=== PATIENT | male | born 1985 | race African-American/Black ===

== ENCOUNTER 2021-08-20 03:00 | Emergency (ER) | payer MEDICAID ==
[~2021-08-20] VITALS: Ht 177.8 cm; Wt 92.5 kg
[2021-08-20 03:07] VITALS: BP 141/102
--- NOTE | 2021-08-20 03:13 | NUR ---
Patient ambulated to bed 5.
[2021-08-20] MEDS ORDERED: IBUPROFEN 800 MG TAB PO ONE (03:15)
[2021-08-20] MEDS ORDERED: PANTOPRAZOLE 40 MG TABEC PO ONE (03:15)
[2021-08-20] MEDS ORDERED: ASPIRIN 325 MG TAB PO ONE (03:15)
--- NOTE | 2021-08-20 03:15 | NUR ---
IN BED 5 WITH C/O HEMATEMESIS. ADMITS TO CONSUMING ALCOHOL FREQUENTLY. PT STATES HE HAS BEEN HAVING CHEST PRESSURE ON AND OFF FOR 1 WEEK
--- NOTE | 2021-08-20 03:18 | NUR ---
TO RADIOLOGY VIA W/C
--- NOTE | 2021-08-20 03:20 | NUR ---
RETURNED FROM RADIOLOGY. LAB AT BEDSIDE
--- NOTE | 2021-08-20 03:33 | NUR ---
DR FINK AT BEDSIDE FOR EXAM
[2021-08-20] MEDS ORDERED: ONDANSETRON 4 MG/2 ML VIAL IVP ONE (03:35)
[2021-08-20] MEDS ORDERED: PANTOPRAZOLE 40 MG INJ VIAL IVP ONE (03:35)
[2021-08-20 03:43] LABS: BASOPHILS # (AUTO) 0.1 K/uL (0.00-0.22); BASOPHILS % (AUTO) 1.1 % (0.0-2.0); EOSINOPHILS # (AUTO) 0.1 K/uL (0-0.4); EOSINOPHILS % (AUTO) 1.5 % (0.0-4.0); HEMATOCRIT 44.7 % (36-52); HEMOGLOBIN 15.5 g/dL (12.0-18.0); LYMPHOCYTES # (AUTO) 2.5 K/uL (2.0-11.5); LYMPHOCYTES % (AUTO) 40.7 % (20.5-51.1); MEAN CORPUSCULAR HEMOGLOBIN 34 pg (27-31); MEAN CORPUSCULAR HGB CONC 35 g/dL (33-37); MEAN CORPUSCULAR VOLUME 97.2 fL (80-94); MONOCYTES # (AUTO) 0.5 K/uL (0.8-1.0); MONOCYTES % (AUTO) 8.2 % (1.7-9.3); NEUTROPHILS % (AUTO) 48.5 % (42.2-75.2); PLATELET COUNT (AUTO) 184 K/uL (140-450); RED CELL DISTRIBUTION WIDTH 15.4 % (11.6-13.7); WHITE BLOOD COUNT (AUTO) 6.1 K/uL (4.8-10.8)
[2021-08-20 03:59] LABS: ALBUMIN 4.2 g/dL (3.4-5.0); ANION GAP 13.3 (8-16); CARBON DIOXIDE 26.1 mmol/L (21-32); CREATININE 1.2 mg/dL (0.6-1.3); POTASSIUM 3.4 mmol/L (3.5-5.1); TOTAL BILIRUBIN 0.8 mg/dL (0.0-1.0)
[2021-08-20 05:08] LABS: PROTHROMBIN TIME 10.7 secs (10.8-13.4)
[2021-08-20] MEDS ORDERED: ONDA-188 SL (05:57)
[2021-08-20] MEDS ORDERED: PANT40EC PO (05:57)
--- NOTE | 2021-08-20 06:00 | NUR ---
RESTING COMFORTABLY. AWAITING REEVAL AND DISPOSITION
[2021-08-20 06:10] VITALS: BP 138/94
--- NOTE | 2021-08-20 06:10 | NUR ---
Patient discharged with v/s stable. Written and verbal after care instructions given and explained. Patient alert, oriented and verbalized understanding of instructions. Ambulatory with steady gait. All questions addressed prior to discharge. ID band removed. Patient advised to follow up with PMD. Rx of PRILOSEC given. Patient educated on indication of medication including possible reaction and side effects. Opportunity to ask questions provided and answered.
== END 2021-08-20 06:18 | disposition home or self-care (01) ==
LOC: MED 03:00
DX: K92.0 Hematemesis (principal); Z79.899 Other long term (current) drug therapy
CPT/HCPCS: 36415; 71045; 80053; 84484; 85025; 85610; 93005; 96374; 96375; 99285; C9113; G0482; J2405

== ENCOUNTER 2023-07-28 16:59 | Emergency (ER) | payer MEDICAID ==
[~2023-07-28] VITALS: Ht 180.3 cm; Wt 83.9 kg
[~2023-07-28 16:59] MED LIST: ONDA-188 SL; PANT40EC PO
[2023-07-28 17:06] VITALS: BP 125/102; PULSE 117; RESP 19; TEMP 97.9; O2SAT 97
[2023-07-28] MEDS ORDERED: LID5T TP (17:21)
[2023-07-28] MEDS ORDERED: IBUP-2230 PO (17:21)
[2023-07-28] MEDS: KETOROLAC 30 MG/ML VIAL IM ONE (17:29)
== END 2023-07-28 17:32 | disposition home or self-care (01) ==
LOC: MED 16:59
DX: M79.18 Myalgia, other site (principal); Z79.899 Other long term (current) drug therapy
CPT/HCPCS: 96372; 99283; J1885

== ENCOUNTER 2023-07-30 17:20 | Inpatient (IN) | payer MEDICAID ==
[~2023-07-30] VITALS: Ht 180.3 cm; Wt 89.4 kg
[~2023-07-30 17:20] MED LIST changes: +IBUP-2230 PO; +LID5T TP
[2023-07-30 17:40] VITALS: BP 126/73; PULSE 126; RESP 24; TEMP 102.2; O2SAT 99
[2023-07-30] MEDS: KETOROLAC 30 MG/ML VIAL IM ONE (18:35)
[2023-07-30] MEDS: NACL 0.9% 1,000 ML IV ONE (19:05)
[2023-07-30 19:13] LABS: BASOPHILS # (AUTO) 0.1 K/uL (0.00-0.22); BASOPHILS % (AUTO) 0.4 % (0.0-2.0); HEMATOCRIT 36.3 % (36-52); HEMOGLOBIN 12.9 g/dL (12.0-18.0); LYMPHOCYTES # (AUTO) 1.2 K/uL (2.0-11.5); LYMPHOCYTES % (AUTO) 6.7 % (20.5-51.1); MEAN CORPUSCULAR HEMOGLOBIN 33 pg (27-31); MEAN CORPUSCULAR HGB CONC 36 g/dL (33-37); MEAN CORPUSCULAR VOLUME 93.1 fL (80-94); MONOCYTES # (AUTO) 2.8 K/uL (0.8-1.0); MONOCYTES % (AUTO) 15.4 % (1.7-9.3); NEUTROPHILS # (AUTO) 14.3 K/uL (1.8-7.7); NEUTROPHILS % (AUTO) 77.5 % (42.2-75.2); PLATELET COUNT (AUTO) 193 K/uL (140-450); RED CELL DISTRIBUTION WIDTH 15.4 % (11.6-13.7); WHITE BLOOD COUNT (AUTO) 18.4 K/uL (4.8-10.8)
[2023-07-30 19:26] LABS: ANION GAP 15.4 (8-16); CALCIUM 9.3 mg/dL (8.5-10.1); CARBON DIOXIDE 26.6 mmol/L (21-32); CREATININE 1.3 mg/dL (0.6-1.3)
[2023-07-30 19:32] LABS: ALBUMIN 2.9 g/dL (3.4-5.0); BILIRUBIN,DIRECT 0.3 mg/dL (0.0-0.3); TOTAL PROTEIN, SERUM 8.2 g/dL (6.4-8.2)
[2023-07-30 19:37] LABS: LACTIC ACID 1.1 mmol/L (0.4-2.0)
[2023-07-30 20:06] LABS: FLU A ANTIGEN negative (NEGATIVE); FLU B ANTIGEN NEGATIVE (NEGATIVE)
[2023-07-30] MEDS ORDERED: cefTRIAXone 1,000 MG VIAL ONE (20:36)
[2023-07-30] MEDS: POTASSIUM CHLORIDE 10 MEQ TABER PO ONE (20:50)
[2023-07-30] MEDS ORDERED: MORPHINE SULFATE 4 MG/ML SYR IVP PRN (21:05)
[2023-07-30] MEDS ORDERED: cefTRIAXone 1,000 MG in LIDOCAINE MPF 1% 2.1 ML IM ONE (21:05)
[2023-07-30] MEDS ORDERED: ACETAMINOPHEN 325 MG TAB PO PRN (21:05)
[2023-07-30] MEDS: DEXT 5% / NACL 0.45% 1,000 ML IV SCH (22:10)
[2023-07-30 23:30] VITALS: BP 149/98; PULSE 91; PULSE 93; RESP 18; TEMP 98.6; O2SAT 97; O2SAT 98
[2023-07-31 04:00] VITALS: BP 126/70; PULSE 91; RESP 18; TEMP 98.6; O2SAT 97
[2023-07-31 06:43] LABS: BASOPHILS % (AUTO) 0.2 % (0.0-2.0); EOSINOPHILS % (AUTO) 0.2 % (0.0-4.0); HEMOGLOBIN 11.7 g/dL (12.0-18.0); LYMPHOCYTES # (AUTO) 1.4 K/uL (2.0-11.5); MEAN CORPUSCULAR HEMOGLOBIN 33 pg (27-31); MEAN CORPUSCULAR HGB CONC 35 g/dL (33-37); MONOCYTES # (AUTO) 2.2 K/uL (0.8-1.0); MONOCYTES % (AUTO) 17.1 % (1.7-9.3); NEUTROPHILS # (AUTO) 9.2 K/uL (1.8-7.7); NEUTROPHILS % (AUTO) 71.5 % (42.2-75.2); PLATELET COUNT (AUTO) 203 K/uL (140-450); RED BLOOD CELL COUNT(AUTO) 3.51 MIL/uL (4.20-6.10); RED CELL DISTRIBUTION WIDTH 15.1 % (11.6-13.7); WHITE BLOOD COUNT (AUTO) 12.9 K/uL (4.8-10.8)
[2023-07-31 06:57] LABS: ALBUMIN 2.4 g/dL (3.4-5.0); ANION GAP 13.3 (8-16); CALCIUM 8.7 mg/dL (8.5-10.1); CARBON DIOXIDE 26.5 mmol/L (21-32); CREATININE 1.1 mg/dL (0.6-1.3); TOTAL BILIRUBIN 0.7 mg/dL (0.0-1.0); TOTAL PROTEIN, SERUM 7.2 g/dL (6.4-8.2)
[2023-07-31 07:20] LABS: POTASSIUM 2.8 mmol/L (3.5-5.1)
[2023-07-31 08:00] VITALS: BP 128/78; PULSE 90; PULSE 91; RESP 18; TEMP 98.4; O2SAT 97
[2023-07-31] MEDS: ENOXAPARIN 40 MG/0.4 ML SYR SUBQ SCH (09:29)
[2023-07-31 11:02] LABS: APPEARANCE,URINE CLEAR (CLEAR); BILIRUBIN,URINE NEGATIVE (NEGATIVE); BLOOD, URINE 2+ (NEGATIVE); LEUKOCYTE ESTERASE ,URINE NEGATIVE (NEGATIVE); NITRITE, URINE NEGATIVE (NEGATIVE); PROTEIN,URINE 1+ (NEGATIVE); UGLUCOSE NEGATIVE (NEGATIVE); UROBILINOGEN,URINE 0.2 EU/dL (0.2 - 1)
[2023-07-31 11:05] LABS: COLOR,URINE ORANGE (YELLOW)
[2023-07-31 11:13] LABS: BACTERIA,URINE FEW /HPF (None Seen); SQUAMOUS EPITHELIAL CELL,UR 0-3 (FEW) /LPF (0-3 (FEW)); WBC,URINE 0-5 /HPF (0-5)
[2023-07-31 12:00] VITALS: BP 128/78; PULSE 90; RESP 18; TEMP 98.4; O2SAT 97
[2023-07-31] MEDS ORDERED: VANCOMYCIN PER PHARMACY MC PRN (14:40)
[2023-07-31] MEDS: DOXYCYCLINE 100 MG CAP PO SCH (15:04)
[2023-07-31] MEDS: VANCOMYCIN 1,000 MG in DEXTROSE 5% 250 ML IV SCH (15:05)
[2023-07-31] MEDS: MORPHINE SULFATE 2 MG/ML SYR IVP PRN (15:11)
[2023-07-31 16:00] VITALS: BP 113/80; PULSE 100; RESP 19; TEMP 98.6; O2SAT 97
[2023-07-31] MEDS: POTASSIUM CHLORIDE 40 MEQ, LIDOCAINE 1% 25 MG in NACL 0.9% 250 ML IV SCH (18:03)
[2023-07-31 19:44] VITALS: BP 121/73; PULSE 101; RESP 16; TEMP 98.7; O2SAT 100
[2023-07-31 20:00] VITALS: PULSE 101; RESP 16; O2SAT 100
[2023-07-31] MEDS: POTASSIUM CHLORIDE 10 MEQ TABER PO SCH (20:18)
[2023-08-01 04:00] VITALS: BP 146/79; PULSE 99; RESP 16; TEMP 97.7; O2SAT 98
[2023-08-01] MEDS: HYDROcodone/APAP 5/325 MG 1 TAB TAB PO PRN (05:57)
[2023-08-01 07:27] LABS: BASOPHILS # (AUTO) 0.1 K/uL (0.00-0.22); BASOPHILS % (AUTO) 0.5 % (0.0-2.0); EOSINOPHILS % (AUTO) 0.5 % (0.0-4.0); HEMATOCRIT 31.5 % (36-52); HEMOGLOBIN 11.1 g/dL (12.0-18.0); LYMPHOCYTES # (AUTO) 1.7 K/uL (2.0-11.5); LYMPHOCYTES % (AUTO) 17.9 % (20.5-51.1); MEAN CORPUSCULAR HEMOGLOBIN 33 pg (27-31); MEAN CORPUSCULAR HGB CONC 35 g/dL (33-37); MEAN CORPUSCULAR VOLUME 93.6 fL (80-94); MONOCYTES # (AUTO) 1.7 K/uL (0.8-1.0); MONOCYTES % (AUTO) 18.4 % (1.7-9.3); NEUTROPHILS # (AUTO) 5.8 K/uL (1.8-7.7); NEUTROPHILS % (AUTO) 62.7 % (42.2-75.2); PLATELET COUNT (AUTO) 275 K/uL (140-450); RED BLOOD CELL COUNT(AUTO) 3.37 MIL/uL (4.20-6.10); RED CELL DISTRIBUTION WIDTH 14.8 % (11.6-13.7); WHITE BLOOD COUNT (AUTO) 9.2 K/uL (4.8-10.8)
[2023-08-01 08:00] VITALS: PULSE 66; RESP 18; O2SAT 96
[2023-08-01 08:03] LABS: ALBUMIN 2.2 g/dL (3.4-5.0); ANION GAP 12.6 (8-16); CALCIUM 8.8 mg/dL (8.5-10.1); CARBON DIOXIDE 25.4 mmol/L (21-32); CREATININE 1.1 mg/dL (0.6-1.3); TOTAL BILIRUBIN 0.5 mg/dL (0.0-1.0); TOTAL PROTEIN, SERUM 6.9 g/dL (6.4-8.2)
[2023-08-01] MEDS: KETOROLAC 15 MG/ML VIAL IVP PRN (10:24)
[2023-08-01] MEDS: POTASSIUM CHLORIDE 40 MEQ, LIDOCAINE 1% 25 MG in NACL 0.9% 250 ML IV SCH (11:38)
[2023-08-01] MEDS ORDERED: KETOROLAC 15 MG/ML VIAL IVP SCH (12:00)
[2023-08-01 12:32] VITALS: BP 121/75; PULSE 66; RESP 18; TEMP 98.4; O2SAT 96
[2023-08-01 14:46] LABS: ANION GAP 11.7 (8-16); CREATININE 1.1 mg/dL (0.6-1.3); POTASSIUM 3.7 mmol/L (3.5-5.1)
[2023-08-01] MEDS: VANCOMYCIN 1.25GM PREMIX 250 ML IV SCH (15:41)
[2023-08-01 20:00] VITALS: BP 119/78; PULSE 81; RESP 18; TEMP 98.6; O2SAT 100
[2023-08-01] MEDS ORDERED: LIDOCAINE MPF 1% 10 MG/ML VIAL INJ SCH (22:10)
[2023-08-02 04:00] VITALS: BP 127/85; PULSE 82; RESP 18; TEMP 98.6; O2SAT 100
[2023-08-02 07:05] LABS: BASOPHILS # (AUTO) 0.1 K/uL (0.00-0.22); BASOPHILS % (AUTO) 1.1 % (0.0-2.0); EOSINOPHILS # (AUTO) 0.1 K/uL (0-0.4); EOSINOPHILS % (AUTO) 1.1 % (0.0-4.0); HEMATOCRIT 32.4 % (36-52); HEMOGLOBIN 11.6 g/dL (12.0-18.0); LYMPHOCYTES # (AUTO) 1.6 K/uL (2.0-11.5); LYMPHOCYTES % (AUTO) 17.7 % (20.5-51.1); MEAN CORPUSCULAR HEMOGLOBIN 33 pg (27-31); MEAN CORPUSCULAR HGB CONC 36 g/dL (33-37); MEAN CORPUSCULAR VOLUME 93.3 fL (80-94); MONOCYTES # (AUTO) 1.5 K/uL (0.8-1.0); MONOCYTES % (AUTO) 15.8 % (1.7-9.3); NEUTROPHILS % (AUTO) 64.3 % (42.2-75.2); PLATELET COUNT (AUTO) 368 K/uL (140-450); RED BLOOD CELL COUNT(AUTO) 3.47 MIL/uL (4.20-6.10); RED CELL DISTRIBUTION WIDTH 14.8 % (11.6-13.7); WHITE BLOOD COUNT (AUTO) 9.3 K/uL (4.8-10.8)
[2023-08-02 07:14] LABS: ALBUMIN 2.2 g/dL (3.4-5.0); ANION GAP 12.9 (8-16); CARBON DIOXIDE 25.3 mmol/L (21-32); POTASSIUM 3.2 mmol/L (3.5-5.1); TOTAL BILIRUBIN 0.5 mg/dL (0.0-1.0); TOTAL PROTEIN, SERUM 7.1 g/dL (6.4-8.2)
[2023-08-02 08:00] VITALS: BP 125/83; PULSE 85; RESP 18; TEMP 97.6; O2SAT 97
[2023-08-02 11:16] VITALS: PULSE 85; RESP 18; O2SAT 97
[2023-08-02 11:52] LABS: SPECIMENTYPE,BODY FLUID SYNOVIAL
[2023-08-02 11:53] LABS: APPEARANCE,UNSPUN,BODY FLUID CLOUDY (CLEAR); COLOR,BODY FLUID YELLOW (LT YELLOW)
[2023-08-02 12:04] LABS: TOTAL VOLUME,BODY FLUID 48 mL
[2023-08-02 12:05] LABS: APPEARANCE,SPUN,BODY FLUID HAZY (CLEAR); POLYNUCLEAR, BODY FLUID 98 %; RBC, BODY FLUID 700 /cu. mm.; WBC, BODY FLUID 15400 /cu. mm.
[2023-08-02] MEDS: POTASSIUM CHLORIDE 40 MEQ, LIDOCAINE 1% 25 MG in NACL 0.9% 250 ML IV ONE (12:39)
[2023-08-02 15:17] LABS: GLUCOSE,BODY FLUID 53 mg/dL
[2023-08-02 15:18] LABS: PROTEIN, BODY FLUID 4.5 g/dL
[2023-08-02 16:00] VITALS: BP 141/93; PULSE 88; RESP 19; TEMP 98.3; O2SAT 98
[2023-08-02 20:00] VITALS: BP 140/89; PULSE 85; RESP 16; TEMP 99.6; O2SAT 96
[2023-08-03 04:00] VITALS: BP 152/77; PULSE 85; RESP 18; TEMP 98.3; O2SAT 98
[2023-08-03 07:01] LABS: BASOPHILS # (AUTO) 0.1 K/uL (0.00-0.22); BASOPHILS % (AUTO) 0.7 % (0.0-2.0); EOSINOPHILS # (AUTO) 0.1 K/uL (0-0.4); EOSINOPHILS % (AUTO) 1.1 % (0.0-4.0); HEMATOCRIT 32.7 % (36-52); HEMOGLOBIN 11.6 g/dL (12.0-18.0); LYMPHOCYTES # (AUTO) 2.1 K/uL (2.0-11.5); LYMPHOCYTES % (AUTO) 16.9 % (20.5-51.1); MEAN CORPUSCULAR HEMOGLOBIN 33 pg (27-31); MEAN CORPUSCULAR HGB CONC 36 g/dL (33-37); MEAN CORPUSCULAR VOLUME 92.8 fL (80-94); MONOCYTES # (AUTO) 1.7 K/uL (0.8-1.0); NEUTROPHILS # (AUTO) 8.2 K/uL (1.8-7.7); NEUTROPHILS % (AUTO) 67.3 % (42.2-75.2); PLATELET COUNT (AUTO) 447 K/uL (140-450); RED BLOOD CELL COUNT(AUTO) 3.53 MIL/uL (4.20-6.10); RED CELL DISTRIBUTION WIDTH 14.8 % (11.6-13.7); WHITE BLOOD COUNT (AUTO) 12.3 K/uL (4.8-10.8)
[2023-08-03 07:09] LABS: ALBUMIN 2.3 g/dL (3.4-5.0); ANION GAP 13.2 (8-16); CALCIUM 9.3 mg/dL (8.5-10.1); CARBON DIOXIDE 27.5 mmol/L (21-32); POTASSIUM 3.7 mmol/L (3.5-5.1); TOTAL BILIRUBIN 0.4 mg/dL (0.0-1.0); TOTAL PROTEIN, SERUM 7.4 g/dL (6.4-8.2)
[2023-08-03 12:08] LABS: HIV 1/0/2 ABS, QUAL Non Reactive (Non Reactive)
[2023-08-03 12:17] VITALS: BP 131/83; PULSE 81; RESP 18; TEMP 97.3; O2SAT 98
[2023-08-03 20:00] VITALS: BP 119/73; PULSE 83; RESP 16; TEMP 98.3; O2SAT 98
[2023-08-03 22:48] LABS: HIV 1/0/2 ABS, QUAL Non-reactive (Non Reactiv)
[2023-08-04 04:00] VITALS: BP 127/79; PULSE 83; RESP 16; TEMP 98.6; O2SAT 95
[2023-08-04 07:19] LABS: BASOPHILS # (AUTO) 0.1 K/uL (0.00-0.22); BASOPHILS % (AUTO) 0.5 % (0.0-2.0); EOSINOPHILS # (AUTO) 0.1 K/uL (0-0.4); EOSINOPHILS % (AUTO) 0.8 % (0.0-4.0); HEMOGLOBIN 11.3 g/dL (12.0-18.0); LYMPHOCYTES # (AUTO) 1.7 K/uL (2.0-11.5); LYMPHOCYTES % (AUTO) 13.1 % (20.5-51.1); MEAN CORPUSCULAR HEMOGLOBIN 33 pg (27-31); MEAN CORPUSCULAR HGB CONC 35 g/dL (33-37); MONOCYTES # (AUTO) 1.4 K/uL (0.8-1.0); MONOCYTES % (AUTO) 10.8 % (1.7-9.3); NEUTROPHILS # (AUTO) 9.7 K/uL (1.8-7.7); NEUTROPHILS % (AUTO) 74.8 % (42.2-75.2); PLATELET COUNT (AUTO) 497 K/uL (140-450); RED BLOOD CELL COUNT(AUTO) 3.44 MIL/uL (4.20-6.10); RED CELL DISTRIBUTION WIDTH 14.5 % (11.6-13.7)
[2023-08-04 07:54] LABS: ALBUMIN 2.2 g/dL (3.4-5.0); ANION GAP 14.3 (8-16); CALCIUM 9.1 mg/dL (8.5-10.1); CARBON DIOXIDE 26.3 mmol/L (21-32); POTASSIUM 3.6 mmol/L (3.5-5.1); TOTAL BILIRUBIN 0.4 mg/dL (0.0-1.0); TOTAL PROTEIN, SERUM 7.3 g/dL (6.4-8.2)
[2023-08-04 08:00] VITALS: PULSE 83; RESP 16; O2SAT 98
[2023-08-04] MEDS ORDERED: ACET-1182 PO (12:38)
[2023-08-04] MEDS ORDERED: VIB100 PO (12:38)
[2023-08-04] MEDS ORDERED: IBUP-2213 PO (12:38)
[2023-08-04] MEDS ORDERED: LEVO750T75 PO (12:38)
[2023-08-04 12:40] VITALS: BP 137/93; PULSE 79; RESP 18; TEMP 97.6
== END 2023-08-04 13:15 | disposition home or self-care (01) | DRG 720 ==
LOC: MED 17:20 → MTU 21:19
PROVIDERS: ADMIT Family Medicine; ATTEND Family Medicine
PROC: 0S9C3ZZ Drainage of Right Knee Joint, Percutaneous Approach (ICD-10-PCS; principal; 2023-08-02)
DX: A41.9 Sepsis, unspecified organism (principal); E44.1 Mild protein-calorie malnutrition; Z20.822 Contact with and (suspected) exposure to COVID-19; E87.6 Hypokalemia; Z68.27 Body mass index [BMI] 27.0-27.9, adult; M13.861 Other specified arthritis, right knee
CPT/HCPCS: 36415; 73200; 73560; 80048; 80053; 80076; 80202; 81001; 82945; 83605; 84157; 85025; 85651; 86140; 86592; 86702; 87040; 87070; 87075; 87081; 87086; 87205; 87491; 89051; 96361; 96372; 96374; 99285; J0696; J1650; J1885; J2001; J2270; J3370; J3372; J3480; J7030; J7060

== ENCOUNTER 2023-12-27 06:58 | Emergency (ER) | payer MEDICAID ==
[~2023-12-27] VITALS: Ht 180.3 cm; Wt 83.9 kg
[~2023-12-27 06:58] MED LIST changes: +ACET-1182 PO; +IBUP-2213 PO; +LEVO750T75 PO; -LID5T TP; -ONDA-188 SL; +VIB100 PO
[2023-12-27 07:21] VITALS: BP 147/106; PULSE 79; RESP 17; TEMP 97.9; O2SAT 97
[2023-12-27 07:25] VITALS: TEMP 97.9
[2023-12-27 08:04] LABS: BASOPHILS % (AUTO) 0.2 % (0.0-2.0); EOSINOPHILS # (AUTO) 0.2 K/uL (0-0.4); EOSINOPHILS % (AUTO) 4.2 % (0.0-4.0); HEMATOCRIT 41.8 % (36-52); HEMOGLOBIN 14.3 g/dL (12.0-18.0); LYMPHOCYTES # (AUTO) 1.8 K/uL (2.0-11.5); MEAN CORPUSCULAR HEMOGLOBIN 33 pg (27-31); MEAN CORPUSCULAR HGB CONC 34 g/dL (33-37); MEAN CORPUSCULAR VOLUME 95.5 fL (80-94); MONOCYTES # (AUTO) 0.5 K/uL (0.8-1.0); MONOCYTES % (AUTO) 10.5 % (1.7-9.3); NEUTROPHILS # (AUTO) 2.4 K/uL (1.8-7.7); NEUTROPHILS % (AUTO) 48.1 % (42.2-75.2); PLATELET COUNT (AUTO) 136 K/uL (140-450); RED BLOOD CELL COUNT(AUTO) 4.38 MIL/uL (4.20-6.10); RED CELL DISTRIBUTION WIDTH 15.8 % (11.6-13.7)
[2023-12-27] MEDS: NACL 0.9% 1,000 ML IV ONE (08:12)
[2023-12-27] MEDS: ONDANSETRON 4 MG/2 ML VIAL IVP ONE (08:14)
[2023-12-27] MEDS: PANTOPRAZOLE 40 MG INJ VIAL IVP ONE (08:17)
[2023-12-27 08:46] LABS: ALBUMIN 3.9 g/dL (3.4-5.0); BILIRUBIN,DIRECT 0.2 mg/dL (0.0-0.3); TOTAL BILIRUBIN 0.6 mg/dL (0.0-1.0); TOTAL PROTEIN, SERUM 7.7 g/dL (6.4-8.2)
[2023-12-27 08:53] LABS: ANION GAP 17.7 (8-16); CALCIUM 8.8 mg/dL (8.5-10.1); CARBON DIOXIDE 25.4 mmol/L (21-32); CREATININE 0.9 mg/dL (0.6-1.3); POTASSIUM 3.1 mmol/L (3.5-5.1)
[2023-12-27] MEDS ORDERED: PANT40EC PO (09:08)
[2023-12-27] MEDS ORDERED: ONDA-188 SL (09:08)
[2023-12-27] MEDS: POTASSIUM CHLORIDE 10 MEQ TABER PO ONE (09:25)
[2023-12-27 09:31] VITALS: BP 124/77; PULSE 63; RESP 18; O2SAT 96
== END 2023-12-27 09:31 | disposition home or self-care (01) ==
LOC: MED 06:58
DX: K29.20 Alcoholic gastritis without bleeding (principal); E87.6 Hypokalemia; Z79.899 Other long term (current) drug therapy
CPT/HCPCS: 36415; 80048; 80076; 83690; 85025; 96361; 96374; 96375; 99284; J2405; J2470

== ENCOUNTER 2023-12-30 09:49 | Inpatient (IN) | payer MEDICAID ==
[~2023-12-30] VITALS: Ht 177.8 cm; Wt 83.9 kg
[~2023-12-30 09:49] MED LIST changes: +ONDA-188 SL
[2023-12-30 10:08] VITALS: BP 109/67; PULSE 90; RESP 14; TEMP 98.4; O2SAT 100
[2023-12-30] MEDS ORDERED: methylPREDNISolone SS 125 MG in WATER STERILE 2 ML IV ONE (10:15)
[2023-12-30] MEDS: diphenhydrAMINE 50 MG/ML VIAL IVP ONE (10:22)
[2023-12-30 10:25] LABS: BASOPHILS # (AUTO) 0.1 K/uL (0.00-0.22); BASOPHILS % (AUTO) 0.9 % (0.0-2.0); EOSINOPHILS # (AUTO) 0.2 K/uL (0-0.4); EOSINOPHILS % (AUTO) 1.7 % (0.0-4.0); HEMATOCRIT 48.5 % (36-52); HEMOGLOBIN 16.6 g/dL (12.0-18.0); LYMPHOCYTES # (AUTO) 3.6 K/uL (2.0-11.5); LYMPHOCYTES % (AUTO) 30.8 % (20.5-51.1); MEAN CORPUSCULAR HEMOGLOBIN 33 pg (27-31); MEAN CORPUSCULAR HGB CONC 34 g/dL (33-37); MEAN CORPUSCULAR VOLUME 95.7 fL (80-94); MONOCYTES # (AUTO) 0.3 K/uL (0.8-1.0); MONOCYTES % (AUTO) 2.7 % (1.7-9.3); NEUTROPHILS # (AUTO) 7.4 K/uL (1.8-7.7); NEUTROPHILS % (AUTO) 63.9 % (42.2-75.2); PLATELET COUNT (AUTO) 149 K/uL (140-450); RED BLOOD CELL COUNT(AUTO) 5.07 MIL/uL (4.20-6.10); RED CELL DISTRIBUTION WIDTH 15.4 % (11.6-13.7); WHITE BLOOD COUNT (AUTO) 11.6 K/uL (4.8-10.8)
[2023-12-30] MEDS: FAMOTIDINE 20 MG/2 ML VIAL IVP ONE (10:26)
[2023-12-30] MEDS: LORazepam 2 MG/ML VIAL IVP ONE (10:27)
[2023-12-30 10:47] LABS: ALANINE AMINOTRANSFERASE 306 U/L (12-78); ALBUMIN 3.9 g/dL (3.4-5.0); ALCOHOL, BLOOD < 3 mg/dL (<10); ALKALINE PHOSPHATASE 94 U/L (50-136); ANION GAP 15.5 (8-16); ASPARTATE AMINOTRANSFERASE 871 U/L (15-37); CARBON DIOXIDE 25.7 mmol/L (21-32); CHLORIDE 100 mmol/L (98-107); CREATININE 1.3 mg/dL (0.6-1.3); GFR ARICAN-AMERICAN 79 mL/min (>90); GFR NON ARICAN-AMERICAN 66 mL/min (>90); GLUCOSE 156 mg/dL (74-106); LIPASE 97 U/L (16-77); POTASSIUM 3.2 mmol/L (3.5-5.1); SODIUM SERUM 138 mmol/L (136-145); TOTAL PROTEIN, SERUM 7.7 g/dL (6.4-8.2); UREA NITROGEN, BLOOD 6 mg/dL (7-18)
[2023-12-30 11:03] LABS: ACETAMINOPHEN < 0.5 ug/ml (10-30); SALICYLATE < 2.8 mg/dL (2.8-20.0)
[2023-12-30] MEDS: NACL 0.9% 1,000 ML IV ONE (12:18)
[2023-12-30] MEDS: methylPREDNISolone SS 125 MG/2 ML VIAL IVP SCH (12:18)
[2023-12-30 13:37] LABS: AMPHETAMINE, URINE NEGATIVE ng/ml (NEG <=1000); BARBITURATE, URINE NEGATIVE ng/ml (NEG <=200); BENZODIAZEPINE, URINE POSITIVE ng/mL (NEG <=200); COCAINE, URINE NEGATIVE ng/mL (NEG <=300)
[2023-12-30 13:38] LABS: CANNABINOID, URINE POSITIVE ng/mL (NEG <=50); OPIATE, URINE NEGATIVE ng/mL (NEG <=2000); PHENCYCLIDINE SCREEN,URINE NEGATIVE ng/mL (NEG <=25)
[2023-12-30] MEDS ORDERED: LORazepam 2 MG/ML VIAL IVP PRN (13:50)
[2023-12-30] MEDS ORDERED: MORPHINE SULFATE 2 MG/ML SYR IVP PRN (13:50)
[2023-12-30] MEDS ORDERED: ONDANSETRON 4 MG/2 ML VIAL IVP PRN (13:50)
[2023-12-30] MEDS: MULTIVITAMIN 1 TAB PO SCH (14:41)
[2023-12-30] MEDS: FOLIC ACID 1 MG TAB PO ONE (14:41)
[2023-12-30] MEDS: chlordiazePOXIDE 25 MG CAP PO SCH (14:42)
[2023-12-30] MEDS: THIAMINE 200 MG/2 ML VIAL IV ONE (14:43)
[2023-12-30] MEDS: MAG SULF 2000 MG/WATER PREMIX 50 ML IV ONE (14:51)
[2023-12-30 15:13] VITALS: PULSE 88; RESP 18; O2SAT 98
[2023-12-30 16:00] VITALS: BP 127/87; PULSE 81; PULSE 84; RESP 18; TEMP 98.8; O2SAT 98
[2023-12-30] MEDS: LACTATED RINGERS 1,000 ML IV SCH (16:38)
[2023-12-30 19:59] VITALS: PULSE 78
[2023-12-30 20:00] VITALS: BP_SYST 119; BP_SYST 124; BP_DIAS 52; BP_DIAS 82; PULSE 103; PULSE 85; RESP 18; TEMP 97.4; TEMP 97.8; O2SAT 96; O2SAT 97
[2023-12-30] MEDS: POTASSIUM CHLORIDE 10 MEQ TABER PO PRN (21:55)
[2023-12-30 23:58] VITALS: PULSE 80
[2023-12-31] VITALS (9 sets, daily range): BP systolic 118–149; BP diastolic 81–106; PULSE 62–90; RESP 18–20; TEMP 97.1–98.1; O2SAT 95–99
[2023-12-31 05:22] LABS: BASOPHILS % (AUTO) 0.2 % (0.0-2.0); EOSINOPHILS % (AUTO) 0.1 % (0.0-4.0); HEMATOCRIT 38.2 % (36-52); HEMOGLOBIN 13.3 g/dL (12.0-18.0); LYMPHOCYTES # (AUTO) 1.2 K/uL (2.0-11.5); MEAN CORPUSCULAR HEMOGLOBIN 33 pg (27-31); MEAN CORPUSCULAR HGB CONC 35 g/dL (33-37); MEAN CORPUSCULAR VOLUME 95.4 fL (80-94); MONOCYTES # (AUTO) 0.5 K/uL (0.8-1.0); MONOCYTES % (AUTO) 4.8 % (1.7-9.3); NEUTROPHILS # (AUTO) 9.1 K/uL (1.8-7.7); NEUTROPHILS % (AUTO) 83.9 % (42.2-75.2); PLATELET COUNT (AUTO) 124 K/uL (140-450); RED BLOOD CELL COUNT(AUTO) 4.01 MIL/uL (4.20-6.10); RED CELL DISTRIBUTION WIDTH 15.1 % (11.6-13.7); WHITE BLOOD COUNT (AUTO) 10.8 K/uL (4.8-10.8)
[2023-12-31 05:50] LABS: ALBUMIN 3.6 g/dL (3.4-5.0); ANION GAP 9.2 (8-16); CALCIUM 9.2 mg/dL (8.5-10.1); CARBON DIOXIDE 30.4 mmol/L (21-32); MAGNESIUM 1.7 mg/dL (1.8-2.4); PHOSPHORUS 1.7 mg/dL (2.5-4.9); POTASSIUM 4.6 mmol/L (3.5-5.1); TOTAL PROTEIN, SERUM 7.2 g/dL (6.4-8.2)
[2023-12-31] MEDS: ENOXAPARIN 40 MG/0.4 ML SYR SUBQ SCH (09:02)
[2023-12-31] MEDS: methylPREDNISolone SS 125 MG/2 ML VIAL IV SCH (14:51)
[2023-12-31] MEDS: SODIUM PHOS / POTASSIUM PHOS 1 PKT PDR PO SCH (14:58)
[2023-12-31] MEDS: MAG SULF 2000 MG/WATER PREMIX 50 ML IV SCH (15:04)
[2024-01-01] VITALS: BP 127/88; PULSE 64; PULSE 82; RESP 18; TEMP 97.4; O2SAT 97
[2024-01-01 04:00] VITALS: BP 133/87; PULSE 61; PULSE 67; RESP 18; TEMP 97.9; O2SAT 97
[2024-01-01 05:31] LABS: BASOPHILS % (AUTO) 0.7 % (0.0-2.0); EOSINOPHILS # (AUTO) 0.2 K/uL (0-0.4); EOSINOPHILS % (AUTO) 2.6 % (0.0-4.0); HEMATOCRIT 40.5 % (36-52); HEMOGLOBIN 13.8 g/dL (12.0-18.0); LYMPHOCYTES % (AUTO) 32.4 % (20.5-51.1); MEAN CORPUSCULAR HEMOGLOBIN 33 pg (27-31); MEAN CORPUSCULAR HGB CONC 34 g/dL (33-37); MONOCYTES # (AUTO) 0.5 K/uL (0.8-1.0); MONOCYTES % (AUTO) 7.9 % (1.7-9.3); NEUTROPHILS # (AUTO) 3.5 K/uL (1.8-7.7); NEUTROPHILS % (AUTO) 56.4 % (42.2-75.2); PLATELET COUNT (AUTO) 118 K/uL (140-450); RED BLOOD CELL COUNT(AUTO) 4.17 MIL/uL (4.20-6.10); RED CELL DISTRIBUTION WIDTH 15.4 % (11.6-13.7); WHITE BLOOD COUNT (AUTO) 6.2 K/uL (4.8-10.8)
[2024-01-01 05:50] LABS: ALBUMIN 3.4 g/dL (3.4-5.0); ANION GAP 12.7 (8-16); CALCIUM 8.8 mg/dL (8.5-10.1); CARBON DIOXIDE 27.8 mmol/L (21-32); MAGNESIUM 2.2 mg/dL (1.8-2.4); PHOSPHORUS 4.5 mg/dL (2.5-4.9); POTASSIUM 3.5 mmol/L (3.5-5.1); TOTAL BILIRUBIN 0.4 mg/dL (0.0-1.0); TOTAL PROTEIN, SERUM 6.7 g/dL (6.4-8.2)
[2024-01-01 06:08] LABS: HEPATITIS A ANTIBODY IGM Negative (Negative); HEPATITIS B CORE AB TOTAL Negative (Negative); HEPATITIS B CORE, IGM Negative (Negative); HEPATITIS B SURFACE ANTIBODY Reactive (.); HEPATITIS B SURFACE ANTIGEN Negative (Negative); HEPATITIS C VIRUS ANTIBODY Non Reactive (Non Reactive)
[2024-01-01 08:00] VITALS: BP 125/81; PULSE 85; PULSE 89; RESP 18; RESP 19; TEMP 98; O2SAT 100; O2SAT 96
[2024-01-01 10:41] LABS: PARTIAL THROMBOPLASTIN TIME 21.5 secs (22-35.6); PROTHROMBIN TIME 10.5 secs (10.8-13.4)
[2024-01-01 12:00] VITALS: BP 125/81; PULSE 85; PULSE 89; RESP 18; TEMP 98; O2SAT 100
[2024-01-02 17:50] LABS: HEPATITIS A ANTIBODY TOTAL Positive (Negative)
== END 2024-01-01 15:35 | disposition home or self-care (01) | DRG 280 ==
LOC: MED 09:49 → MTU 13:52
PROVIDERS: ADMIT Internal Medicine; ATTEND Internal Medicine
PROC: 4A00X4Z Measurement of Central Nervous Electrical Activity, External Approach (ICD-10-PCS; principal; 2024-01-01)
DX: K70.10 Alcoholic hepatitis without ascites (principal); K85.90 Acute pancreatitis without necrosis or infection, unspecified; R56.9 Unspecified convulsions; D72.829 Elevated white blood cell count, unspecified; L27.0 Generalized skin eruption due to drugs and medicaments taken internally; Y90.9 Presence of alcohol in blood, level not specified; E87.6 Hypokalemia; T50.995A Adverse effect of other drugs, medicaments and biological substances, initial encounter; Z79.899 Other long term (current) drug therapy; Y92.89 Other specified places as the place of occurrence of the external cause; F10.239 Alcohol dependence with withdrawal, unspecified
CPT/HCPCS: 36415; 70450; 80053; 80305; 82140; 82948; 83690; 83735; 84100; 85025; 85610; 85730; 86704; 86706; 86708; 86709; 86803; 87081; 87340; 93005; 95816; 96361; 96374; 96375; 99285; G0480; G0482; J1200; J1650; J2060; J2919; J3411; J3475; J3490